=== PATIENT | male | born 1965 ===

== ENCOUNTER 2018-02-24 08:54 | Outpatient (CLI) | payer OTHER | END 2018-02-24 08:55 | disposition home or self-care (01) | LOC: SC 08:54 | PROVIDERS: ATTEND Internal Medicine Pulmonary Disease | DX: G47.33 Obstructive sleep apnea (adult) (pediatric) (principal) | CPT/HCPCS: 99203; 99212 ==

== ENCOUNTER 2018-04-08 19:03 | Outpatient (CLI) | payer OTHER | END 2018-04-08 19:04 | disposition home or self-care (01) | LOC: SC 19:03 | PROVIDERS: ATTEND Internal Medicine Pulmonary Disease | DX: G47.33 Obstructive sleep apnea (adult) (pediatric) (principal) | CPT/HCPCS: 95810 ==

== ENCOUNTER 2018-05-27 08:47 | Outpatient (CLI) | payer OTHER | END 2018-05-27 08:48 | disposition home or self-care (01) | LOC: SC 08:47 | PROVIDERS: ATTEND Nurse Practitioner Family | DX: G47.33 Obstructive sleep apnea (adult) (pediatric) (principal) | CPT/HCPCS: 99212; 99214 ==